=== PATIENT | female | born 1970 | race Caucasian/White ===

== ENCOUNTER 2018-07-20 06:06 | Emergency (ER) | payer MEDICAID, OTHER ==
[2018-07-20 06:52] LABS: ADD MAN DIFF? NO
[2018-07-20] MEDS: LIDOCAINE/MYLANTA 40 ML BTL PO (06:54)
[2018-07-20] MEDS: FAMOTIDINE 20 MG TAB PO (06:54)
[2018-07-20] MEDS: ONDANSETRON 4 MG INJ IV (06:54)
[2018-07-20] MEDS: ACETAMINOPHEN 325 MG TAB PO (06:54)
[2018-07-20] MEDS: BELLADONNA/PHENOBARBITAL TAB PO (06:54)
[2018-07-20 06:55] LABS: WHITE BLOOD COUNT 6.8 10^3/ul (4.8-10.8)
[2018-07-20 06:55] LABS: BASOPHIL # 0.1 10^3/ul (0.0-0.1); BASOPHILS % 0.9 % (0.0-2.0); EOSINOPHILS # 0.1 10^3/ul (0.0-0.5); EOSINOPHILS % 1.5 % (0.0-7.0); HEMATOCRIT 39.8 % (37.0-47.0); HEMOGLOBIN 13.3 g/dl (12.0-16.0); LYMPHOCYTES # 1.5 10^3/ul (0.8-2.9); LYMPHOCYTES % 22.7 % (15.0-51.0); MEAN CORPUSCULAR HEMOGLOBIN 28.4 pg (29.0-33.0); MEAN CORPUSCULAR HGB CONC 33.4 g/dl (32.0-37.0); MONOCYTE # 0.4 10^3/ul (0.3-0.9); MONOCYTES % 6.4 % (0.0-11.0); NEUTROPHIL # 4.6 10^3/ul (1.6-7.5); NEUTROPHILS % 68.1 % (39.0-77.0); PLATELET COUNT 244 10^3/UL (140-415); RED BLOOD COUNT 4.68 10^6/ul (4.20-5.40); RED CELL DISTRIBUTION WIDTH 13.4 % (11.5-14.5)
[2018-07-20] MEDS: SOD CHLORIDE 0.9% 1,000 ML IV (06:55)
[2018-07-20 07:00] LABS: ADD UMIC YES; UR ASCORBIC ACID NEGATIVE (NEGATIVE); UR BILIRUBIN (Dip) NEGATIVE (NEGATIVE); UR BLOOD (Dip) 1+ mg/dL (NEGATIVE); UR CLARITY CLEAR (CLEAR); UR COLOR YELLOW (YELLOW); UR GLUCOSE (Dip) NEGATIVE (NEGATIVE); UR KETONES (Dip) NEGATIVE (NEGATIVE); UR LEUKOCYTE ESTERASE (Dip) NEGATIVE Leu/ul (NEGATIVE); UR NITRITE (Dip) NEGATIVE (NEGATIVE); UR RBC 2 /HPF (0-5); UR SPECIFIC GRAVITY (Dip) 1.014 (1.003-1.030); UR TOTAL PROTEIN (Dip) NEGATIVE (NEGATIVE); UR UROBILINOGEN (Dip) NEGATIVE (NEGATIVE); UR WBC 0 /HPF (0-5)
[2018-07-20 07:20] LABS: ALBUMIN 4.2 g/dl (3.3-4.9); ALBUMIN/GLOBULIN RATIO 1.23; ALKALINE PHOSPHATASE 68 IU/L (42-121); ANION GAP 11 (8-16); ASPARTATE AMINO TRANSFERASE 27 IU/L (15-46); BILIRUBIN,INDIRECT 0.3 mg/dl (0-1.1); BILIRUBIN,TOTAL 0.3 mg/dl (0.2-1.3); BLOOD UREA NITROGEN 12 mg/dl (7-20); CALCIUM 8.8 mg/dl (8.4-10.2); CARBON DIOXIDE 27 mmol/L (21-31); CHLORIDE 107 mmol/L (97-110); CREATININE 0.57 mg/dl (0.44-1.00); GLUCOSE 124 mg/dl (70-220); LIPASE 58 U/L (23-300); POTASSIUM 3.8 mmol/L (3.5-5.1); SODIUM 141 mmol/L (135-144); TOTAL PROTEIN 7.6 g/dl (6.1-8.1)
[2018-07-20 07:46] LABS: ALANINE AMINOTRANSFERASE 26 IU/L (13-69)
[2018-07-20] MEDS ORDERED: LIDOCAINE/MYLANTA 40 ML BTL PO (08:00)
[2018-07-20] MEDS: OXYCODONE/ACETAMINOPHEN (5/325) TAB PO (08:08)
== END 2018-07-20 09:45 | disposition home or self-care (01) ==
LOC: E/R 06:06
DX: K21.0 Gastro-esophageal reflux disease with esophagitis (principal); K29.00 Acute gastritis without bleeding; R19.7 Diarrhea, unspecified; E66.9 Obesity, unspecified; Z68.35 Body mass index [BMI] 35.0-35.9, adult
CPT/HCPCS: 36415; 80053; 81001; 83690; 85025; 96361; 96374; 99284-25

== ENCOUNTER 2018-09-09 17:31 | Emergency (ER) | payer MEDICAID ==
[2018-09-09 18:32] LABS: ADD MAN DIFF? NO
[2018-09-09 18:36] LABS: WHITE BLOOD COUNT 10.3 10^3/ul (4.8-10.8)
[2018-09-09 18:36] LABS: BASOPHIL # 0.1 10^3/ul (0.0-0.1); BASOPHILS % 0.8 % (0.0-2.0); EOSINOPHILS # 0.2 10^3/ul (0.0-0.5); EOSINOPHILS % 1.5 % (0.0-7.0); HEMOGLOBIN 13.6 g/dl (12.0-16.0); LYMPHOCYTES # 3.2 10^3/ul (0.8-2.9); LYMPHOCYTES % 30.7 % (15.0-51.0); MEAN CORPUSCULAR HGB CONC 32.4 g/dl (32.0-37.0); MEAN CORPUSCULAR VOLUME 83.5 fl (82.0-101.0); MEAN PLATELET VOLUME 11.5 fl (7.4-10.4); MONOCYTE # 0.7 10^3/ul (0.3-0.9); MONOCYTES % 6.5 % (0.0-11.0); NEUTROPHIL # 6.2 10^3/ul (1.6-7.5); NEUTROPHILS % 60.3 % (39.0-77.0); PLATELET COUNT 293 10^3/UL (140-415); RED BLOOD COUNT 5.03 10^6/ul (4.20-5.40); RED CELL DISTRIBUTION WIDTH 13.3 % (11.5-14.5)
[2018-09-09] MEDS: OXYCODONE/ACETAMINOPHEN (5/325) TAB PO (18:45)
[2018-09-09] MEDS: ONDANSETRON 4 MG INJ IV (18:45)
[2018-09-09] MEDS: BELLADONNA/PHENOBARBITAL TAB PO (18:45)
[2018-09-09] MEDS: LIDOCAINE/MYLANTA 40 ML BTL PO (18:45)
[2018-09-09] MEDS: FAMOTIDINE 20 MG TAB PO (18:45)
[2018-09-09] MEDS: SOD CHLORIDE 0.9% 1,000 ML IV (18:46)
[2018-09-09 18:55] LABS: ALANINE AMINOTRANSFERASE 24 IU/L (13-69); ALBUMIN 4.8 g/dl (3.3-4.9); ALBUMIN/GLOBULIN RATIO 1.33; ALKALINE PHOSPHATASE 84 IU/L (42-121); ANION GAP 10 (5-13); ASPARTATE AMINO TRANSFERASE 27 IU/L (15-46); BILIRUBIN,INDIRECT 0.1 mg/dl (0-1.1); BILIRUBIN,TOTAL 0.1 mg/dl (0.2-1.3); BLOOD UREA NITROGEN 14 mg/dl (7-20); CALCIUM 9.4 mg/dl (8.4-10.2); CARBON DIOXIDE 30 mmol/L (21-31); CHLORIDE 99 mmol/L (97-110); CREATININE 0.56 mg/dl (0.44-1.00); Estimated GFR > 60 mL/min (>60); GLUCOSE 96 mg/dl (70-220); LIPASE 91 U/L (23-300); POTASSIUM 3.6 mmol/L (3.5-5.1); SODIUM 139 mmol/L (135-144); TOTAL PROTEIN 8.4 g/dl (6.1-8.1)
[2018-09-09] MEDS: ENALAPRILAT 1.25 MG INJ IV (18:58)
[2018-09-09 19:07] LABS: TROPONIN-I < 0.012 ng/ml (0.000-0.120)
== END 2018-09-09 19:41 | disposition home or self-care (01) ==
LOC: E/R 17:31
DX: K29.00 Acute gastritis without bleeding (principal); I10 Essential (primary) hypertension
CPT/HCPCS: 36415; 80053; 83690; 84484; 85025; 93005; 96374; 99284-25